=== PATIENT | female | born 1970 | race Caucasian/White ===

== ENCOUNTER 2018-11-06 11:46 | Inpatient (IN) | payer OTHER ==
[~2018-11-06] VITALS: Ht 162.6 cm; Wt 74.8 kg
[2018-11-13] MEDS ORDERED: COZAAR25 MG PO (16:08)
== END 2018-11-16 10:35 | DRG 743 ==
LOC: OB/GYN 11-14 06:00 → O/R 11-14 06:00 → RECOVERY 11-14 09:00 → OB/GYN 11-14 11:29 → RECOVERY 11-14 14:00 → OB/GYN 11-16 10:35
PROVIDERS: ADMIT Obstetrics & Gynecology
PROC: 0UT90ZZ Resection of Uterus, Open Approach (ICD-10-PCS; principal; 2018-11-14 09:00)
DX: D25.1 Intramural leiomyoma of uterus (principal); D25.0 Submucous leiomyoma of uterus; D25.2 Subserosal leiomyoma of uterus; N72 Inflammatory disease of cervix uteri